=== PATIENT | male | born 2005 | race Caucasian/White ===

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

== ENCOUNTER 2025-03-02 16:16 | Emergency (ER) | payer BC | END 2025-03-02 18:49 | disposition home or self-care (01) | LOC: CSHERS 16:16 | DX: R05.9 Cough, unspecified (principal); I10 Essential (primary) hypertension; J45.909 Unspecified asthma, uncomplicated | CPT/HCPCS: 71045; 87081; 87428; 87430 ==